=== PATIENT | female | born 1950 | race Caucasian/White ===

== ENCOUNTER → 2024-06-14 | Outpatient (CLI) | payer MEDICARE, MEDICAID, SELFPAY ==
[2024-06-14 16:34] LABS: Basophils # (Auto) 0.1 Thou/mm3 (0.0-0.2); Basophils % (Auto) 1 % (0-2.5); Eosinophils # (Auto) 0.2 Thou/mm3 (0.0-0.5); Eosinophils % (Auto) 2 % (0-10); Hematocrit 44.1 % (36.0-46.0); Hemoglobin 14.4 g/dL (12.0-16.0); Immature Granulocytes % (Auto) 1 % (0-0); Immature Granulocytes Auto 0.04 Thou/mm3 (0.00-0.00); Lymphocytes # (Auto) 1.6 Thou/mm3 (1.0-4.8); Lymphocytes % (Auto) 20 % (10-50); Mean Corpuscular HGB Conc 32.7 g/dl (31.0-37.0); Mean Corpuscular Hemoglobin 28.6 pg (25.0-35.0); Mean Corpuscular Volume 88 fL (80-100); Monocytes # (Auto) 0.6 Thou/mm3 (0.0-0.8); Monocytes % (Auto) 8 % (0-12); Neutrophils # (Auto) 5.4 Thou/mm3 (1.8-7.7); Neutrophils % (Auto) 69 % (37-80); Nucleated Red Blood Cell % 0 /100 WBC (0); Platelet Count 194 Thou/mm3 (140-440); RDW Standard Deviation 47.6 fL (36.4-46.3); Red Blood Count 5.04 Miln/mm3 (4.00-5.20); White Blood Count 7.8 Thou/mm3 (3.6-11.0)
[2024-06-14 16:51] LABS: Alanine Aminotransferase 38 U/L (10-49); Albumin, Serum 3.9 gm/dL (3.4-4.8); Albumin/Globulin Ratio 1.9 (1.2-2.2); Alkaline Phosphatase 167 U/L (46-116); Anion Gap 4 (7-16); Aspartate Amino Transferase 56 U/L (0-34); BUN/Creatinine Ratio 21 Ratio (12-20); Bilirubin,Total 0.5 mg/dL (0.3-1.2); Blood Urea Nitrogen 27 mg/dL (9-23); Calcium 10.2 mg/dL (8.3-10.6); Calcium (Corrected) 10.3 mg/dL (8.5-10.1); Chloride 103 mMol/L (98-107); Creatinine (Component) 1.3 mg/dL (0.6-1.3); Globulin 2.1 gm/dL (2.3-3.5); Glucose 100 mg/dL (74-106); Osmolality,Calculated 284 (275-295); Phosphorous 3.9 mg/dL (2.4-5.1); Potassium 4.2 mMol/L (3.4-5.1); Sodium 140 mMol/L (136-145); eGFR 44 See Note
[2024-06-14 17:18] LABS: INR 1.1 (0.9-1.3); Prothrombin Time 12.4 Seconds (9.0-12.2)
== END | disposition home or self-care (01) ==
LOC: COPL 15:39
PROVIDERS: PCP Internal Medicine; Referring Provider Internal Medicine; Visit Provider Internal Medicine
DX: N18.30 Chronic kidney disease, stage 3 unspecified (principal); K74.69 Other cirrhosis of liver; Z12.89 Encounter for screening for malignant neoplasm of other sites
CPT/HCPCS: 36415; 80053; 82105; 84100; 85025; 85610

== ENCOUNTER 2024-07-13 13:02 | Outpatient (RCR) | payer MEDICARE, MEDICAID, SELFPAY ==
[2024-07-12 15:42] LABS: Basophils # (Auto) 0.1 Thou/mm3 (0.0-0.2); Basophils % (Auto) 1 % (0-2.5); Eosinophils # (Auto) 0.2 Thou/mm3 (0.0-0.5); Eosinophils % (Auto) 3 % (0-10); Hematocrit 41.1 % (36.0-46.0); Hemoglobin 13.5 g/dL (12.0-16.0); Immature Granulocytes % (Auto) 0 % (0-0); Immature Granulocytes Auto 0.03 Thou/mm3 (0.00-0.00); Lymphocytes # (Auto) 1.7 Thou/mm3 (1.0-4.8); Lymphocytes % (Auto) 23 % (10-50); Mean Corpuscular HGB Conc 32.8 g/dl (31.0-37.0); Mean Corpuscular Hemoglobin 28.1 pg (25.0-35.0); Mean Corpuscular Volume 85 fL (80-100); Monocytes # (Auto) 0.6 Thou/mm3 (0.0-0.8); Monocytes % (Auto) 9 % (0-12); Neutrophils # (Auto) 4.5 Thou/mm3 (1.8-7.7); Neutrophils % (Auto) 64 % (37-80); Nucleated Red Blood Cell % 0 /100 WBC (0); Platelet Count 202 Thou/mm3 (140-440); RDW Standard Deviation 45.6 fL (36.4-46.3); Red Blood Count 4.81 Miln/mm3 (4.00-5.20); White Blood Count 7.1 Thou/mm3 (3.6-11.0)
[2024-07-12 15:57] LABS: Parathyroid Hormone Intact 94.6 pg/ml (18.5-88.0)
[2024-07-12 16:02] LABS: Alanine Aminotransferase 27 U/L (10-49); Albumin, Serum 3.8 gm/dL (3.4-4.8); Albumin/Globulin Ratio 1.6 (1.2-2.2); Alkaline Phosphatase 159 U/L (46-116); Anion Gap 9 (7-16); Aspartate Amino Transferase 51 U/L (0-34); BUN/Creatinine Ratio 15 Ratio (12-20); Bilirubin,Total 0.6 mg/dL (0.3-1.2); Blood Urea Nitrogen 23 mg/dL (9-23); Calcium 9.7 mg/dL (8.3-10.6); Calcium (Corrected) 9.9 mg/dL (8.5-10.1); Carbon Dioxide 28.1 mMol/L (20.0-31.0); Chloride 101 mMol/L (98-107); Creatinine (Component) 1.5 mg/dL (0.6-1.3); Globulin 2.4 gm/dL (2.3-3.5); Glucose 88 mg/dL (74-106); Osmolality,Calculated 278 (275-295); Potassium 3.4 mMol/L (3.4-5.1); Sodium 138 mMol/L (136-145); Total Protein 6.2 gm/dL (5.7-8.2); eGFR 37 See Note
== END 2024-08-09 23:59 | disposition home or self-care (01) ==
LOC: SCTC 13:02
PROVIDERS: Internal Medicine Hematology & Oncology; PCP Registered Nurse Community Health; Referring Provider Internal Medicine; Visit Provider Nurse Practitioner Family
DX: C50.411 Malignant neoplasm of upper-outer quadrant of right female breast (principal); Z17.0 Estrogen receptor positive status [ER+]; Z17.21 Progesterone receptor positive status; Z17.32 Human epidermal growth factor receptor 2 negative status; Z79.811 Long term (current) use of aromatase inhibitors; Z92.3 Personal history of irradiation; M85.88 Other specified disorders of bone density and structure, other site; R91.1 Solitary pulmonary nodule; Z87.891 Personal history of nicotine dependence; Z86.19 Personal history of other infectious and parasitic diseases
CPT/HCPCS: 36591; 80053; 82105; 83970; 85025; 99212; A4216; J1642; G0463

== ENCOUNTER → 2024-09-19 | Outpatient (CLI) | payer MEDICARE, MEDICAID, SELFPAY ==
--- NOTE | 2024-09-19 14:15 | XR_ITS ---
Examination: Screening digital mammography, bilateral Computer aided detection 3-D breast Tomosynthesis, bilateral Date and time of exam: September 19, 2024 1620 hours Compared to mammograms dating to June 22, 2019 Indication: Screening Technique: Nonmagnified MLO, CC views of the breasts to been obtained, reconstructed from 3-D Tomosynthesis images. R2 computer aided detection program utilized for evaluation of suspicious masses and/or abnormal calcifications. 3-D Tomosynthesis images obtained. Findings: Scattered areas of fibroglandular density. Numerous benign calcifications. No interval suspicious masses Impression: BI-RADS category II: Benign Findings. Recommend 1 year follow-up mammogram.
== END | disposition home or self-care (01) ==
LOC: CDIM 13:34
PROVIDERS: PCP Registered Nurse Community Health; Referring Provider Registered Nurse Community Health; Visit Provider Registered Nurse Community Health
DX: Z12.31 Encounter for screening mammogram for malignant neoplasm of breast (principal); R92.323 Mammographic fibroglandular density, bilateral breasts; R92.1 Mammographic calcification found on diagnostic imaging of breast; C50.919 Malignant neoplasm of unspecified site of unspecified female breast
CPT/HCPCS: 77063; 77067

== ENCOUNTER → 2024-10-04 | Outpatient (CLI) | payer MEDICARE, MEDICAID, SELFPAY ==
[2024-10-04 14:00] LABS: Basophils # (Auto) 0.1 Thou/mm3 (0.0-0.2); Basophils % (Auto) 1 % (0-2.5); Eosinophils # (Auto) 0.2 Thou/mm3 (0.0-0.5); Eosinophils % (Auto) 3 % (0-10); Hemoglobin 13.8 g/dL (12.0-16.0); Immature Granulocytes % (Auto) 0 % (0-0); Immature Granulocytes Auto 0.02 Thou/mm3 (0.00-0.00); Lymphocytes # (Auto) 1.7 Thou/mm3 (1.0-4.8); Lymphocytes % (Auto) 25 % (10-50); Mean Corpuscular HGB Conc 32.9 g/dl (31.0-37.0); Mean Corpuscular Hemoglobin 27.8 pg (25.0-35.0); Mean Corpuscular Volume 85 fL (80-100); Monocytes # (Auto) 0.6 Thou/mm3 (0.0-0.8); Monocytes % (Auto) 9 % (0-12); Neutrophils # (Auto) 4.2 Thou/mm3 (1.8-7.7); Neutrophils % (Auto) 62 % (37-80); Nucleated Red Blood Cell % 0 /100 WBC (0); Platelet Count 250 Thou/mm3 (140-440); RDW Standard Deviation 43.4 fL (36.4-46.3); Red Blood Count 4.96 Miln/mm3 (4.00-5.20); White Blood Count 6.8 Thou/mm3 (3.6-11.0)
[2024-10-04 14:01] LABS: INR 1.2 (0.9-1.3); Prothrombin Time 12.5 Seconds (9.0-12.2)
[2024-10-04 14:35] LABS: Alanine Aminotransferase 31 U/L (10-49); Albumin, Serum 3.9 gm/dL (3.4-4.8); Albumin/Globulin Ratio 1.6 (1.2-2.2); Anion Gap 8 (7-16); Aspartate Amino Transferase 43 U/L (0-34); BUN/Creatinine Ratio 26 Ratio (12-20); Bilirubin,Total 0.6 mg/dL (0.3-1.2); Blood Urea Nitrogen 31 mg/dL (9-23); Calcium 9.8 mg/dL (8.3-10.6); Calcium (Corrected) 9.9 mg/dL (8.5-10.1); Carbon Dioxide 29.1 mMol/L (20.0-31.0); Chloride 104 mMol/L (98-107); Creatinine (Component) 1.2 mg/dL (0.6-1.3); Globulin 2.5 gm/dL (2.3-3.5); Glucose 92 mg/dL (74-106); Osmolality,Calculated 287 (275-295); Potassium 4.4 mMol/L (3.4-5.1); Sodium 141 mMol/L (136-145); Total Protein 6.4 gm/dL (5.7-8.2); eGFR 48 See Note
[2024-10-04 14:55] LABS: Alkaline Phosphatase 171 U/L (46-116)
== END | disposition home or self-care (01) ==
PROVIDERS: PCP Registered Nurse Community Health; Referring Provider Internal Medicine; Visit Provider Internal Medicine
DX: K74.69 Other cirrhosis of liver (principal); K76.0 Fatty (change of) liver, not elsewhere classified
CPT/HCPCS: 36415; 80053; 85025; 85610

== ENCOUNTER → 2024-10-17 | Outpatient (CLI) | payer MEDICARE, MEDICAID, SELFPAY ==
--- NOTE | 2024-10-17 13:30 | XR_ITS ---
Examination: CT abdomen with intravenous contrast. Coronal 2-D reconstructions. Sagittal 2-D reconstructions. Date and time of exam:October 17, 2024 1414 hrs. Indications: Cirrhosis diagnosis 2016 generalized abdominal pain beginning 2 weeks ago CTDI: vol (mGy): 9.1 DLP: (mGycm): 285 Technique: Axial images of the abdomen have been obtained, 3 mm slice thickness, 60 cc [id number] 2-D sagittal coronal reconstructions Low dose protocols were performed. One or more of the following dose reduction techniques were used; automated exposure control, adjustment of the mA and/or KV according to patient size, use of iterative reconstruction technique. Findings: Minimal pericardial effusion Retrocardiac gastric hernia Liver irregular in contour no focal liver lesions Cholelithiasis Gallbladder wall does not appear thickened No splenic pancreatic or adrenal lesion Moderate bilateral renal parenchymal scar formation No ascites Abdominal aortic calcification No bowel obstruction Advanced degenerative disc disease L5-S1 Impression: Cirrhosis, no focal liver lesions Cholelithiasis
== END | disposition home or self-care (01) ==
PROVIDERS: PCP Registered Nurse Community Health; Referring Provider Internal Medicine; Visit Provider Internal Medicine
DX: K74.60 Unspecified cirrhosis of liver (principal); K80.20 Calculus of gallbladder without cholecystitis without obstruction
CPT/HCPCS: 74160; A4649; Q9967

== ENCOUNTER → 2024-10-20 | Outpatient (CLI) | payer MEDICARE, MEDICAID, SELFPAY ==
--- NOTE | 2024-10-20 13:00 | XR_ITS ---
Examination: CT chest, without intravenous contrast. Sagittal and coronal 2-D reconstructions. Exam date and time: October 20, 2024 1306 hrs. Comparison 05/03/2024 Indications: Right breast carcinoma diagnosis post lumpectomy, restaging, 4 mm pulmonary nodule right lower lobe on CT chest 05/03/2024 CTDI:vol (mGy) 10 DLP: (mGycm) 364 Technique: Multiple 3.0 mm axial sections of the chest to been obtained. Bone and lung density settings are obtained. Sagittal and coronal 2-D reconstructions have been obtained. Low dose protocols were performed. One or more of the following dose reduction techniques were used; automated exposure control, adjustment of the mA and/or KV according to patient size, use of iterative reconstruction technique. Findings: Thoracic aortic calcification no aneurysmal dilatation Pulmonary artery segments are not enlarged. Left mastectomy. No chest wall or axillary lymphadenopathy Moderate coronary artery calcification Trace pericardial thickening 4 mm pulmonary nodule right lower lobe No new pulmonary nodules Retrocardiac gastric hernia No visualized liver or splenic lesion Cholelithiasis Impression: Stable 4 mm pulmonary nodule right lower lobe, no new pulmonary nodules
== END | disposition home or self-care (01) ==
LOC: CCTX 12:37
PROVIDERS: PCP Registered Nurse Community Health; Referring Provider Nurse Practitioner Family; Visit Provider Nurse Practitioner Family
DX: R91.1 Solitary pulmonary nodule (principal); C50.411 Malignant neoplasm of upper-outer quadrant of right female breast
CPT/HCPCS: 71250

== ENCOUNTER 2024-11-01 14:31 | Outpatient (RCR) | payer MEDICARE, MEDICAID, SELFPAY ==
[2024-10-31 16:39] LABS: Basophils % (Auto) 1 % (0-2.5); Eosinophils # (Auto) 0.2 Thou/mm3 (0.0-0.5); Eosinophils % (Auto) 2 % (0-10); Hematocrit 42.5 % (36.0-46.0); Hemoglobin 14.1 g/dL (12.0-16.0); Immature Granulocytes % (Auto) 0 % (0-0); Immature Granulocytes Auto 0.02 Thou/mm3 (0.00-0.00); Lymphocytes # (Auto) 1.3 Thou/mm3 (1.0-4.8); Lymphocytes % (Auto) 17 % (10-50); Mean Corpuscular HGB Conc 33.2 g/dl (31.0-37.0); Mean Corpuscular Hemoglobin 28.3 pg (25.0-35.0); Mean Corpuscular Volume 85 fL (80-100); Monocytes # (Auto) 0.7 Thou/mm3 (0.0-0.8); Monocytes % (Auto) 9 % (0-12); Neutrophils # (Auto) 5.6 Thou/mm3 (1.8-7.7); Neutrophils % (Auto) 71 % (37-80); Nucleated Red Blood Cell % 0 /100 WBC (0); Platelet Count 186 Thou/mm3 (140-440); RDW Standard Deviation 43.8 fL (36.4-46.3); Red Blood Count 4.98 Miln/mm3 (4.00-5.20); White Blood Count 7.9 Thou/mm3 (3.6-11.0)
[2024-10-31 16:58] LABS: Alanine Aminotransferase 26 U/L (10-49); Albumin, Serum 3.7 gm/dL (3.4-4.8); Albumin/Globulin Ratio 1.4 (1.2-2.2); Alkaline Phosphatase 134 U/L (46-116); Anion Gap 7 (7-16); Aspartate Amino Transferase 47 U/L (0-34); BUN/Creatinine Ratio 23 Ratio (12-20); Bilirubin,Total 0.6 mg/dL (0.3-1.2); Blood Urea Nitrogen 30 mg/dL (9-23); Calcium 9.6 mg/dL (8.3-10.6); Calcium (Corrected) 9.8 mg/dL (8.5-10.1); Carbon Dioxide 29.4 mMol/L (20.0-31.0); Chloride 106 mMol/L (98-107); Creatinine (Component) 1.3 mg/dL (0.6-1.3); Globulin 2.7 gm/dL (2.3-3.5); Glucose 96 mg/dL (74-106); Osmolality,Calculated 289 (275-295); Potassium 4.3 mMol/L (3.4-5.1); Sodium 142 mMol/L (136-145); Total Protein 6.4 gm/dL (5.7-8.2); eGFR 44 See Note
--- NOTE | 2024-11-27 21:12 | CTCFLWUP_ITS ---
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 On adjuvant exemestane. Chronic renal insufficiency currently being followed by Dr. Loni Dumas History of hepatitis C (2002), treated with SOVALDI (2002), cirrhosis of the liver. History of gout. REASON FOR TODAY?S VISIT: This is office follow-up visit. Patient completed labs 07/12/2024. Patient is taking exemestane, tolerating it well, also taking citracal. Patient reports good energy and appetite. Using walker for ambulation. Denies any cough, chest pain, abdominal pain or leg cramps, weight loss. Malignant neoplasm of upper-outer quadrant of right female breast [ICD10] C50.411 DATE OF DIAGNOSIS: 10/26/2015 STAGE/TNM: IIA T2 N0 M0 TREATMENT HISTORY: Care?Plan Start?Date Cycle Day Intent DOCEtaxel?75,?CARBOplatin?AUC?6,?Trasutzumab?6?(8?Load) 02/14/2016 1 21 Curative?(adjuvant) Trastuzumab?6?mg/kg? To?Finish?the?Year 08/20/2016 1 21 Curative?(adjuvant) HISTORY OF PRESENT ILLNESS: Miranda Yoo is a 74-year-old female with following breast cancer history. 10/26/2015: Patient had a right breast mass stereotactic core biopsy which showed moderately differentiated ER MN positive HER-2/kassy overexpressed invasive ductal carcinoma. 11/08/2015: Patient patient had right breast partial mastectomy and sentinel lymph node biopsy. Pathology specimen showed single focus 2.2 cm invasive ductal carcinoma with mucinous-like features. No lymphovascular invasion was identified. It was staged as a pT2, N0 cM0. 10/23/2016: Patient also completed adjuvant radiation therapy to the right breast. 02/14/2016?05/30/2016: Patient completed 6 cycles of TCH chemotherapy. Completed 1 year of Herceptin (04/08/2017). 04/17/2017: Patient was started on adjuvant anastrozole. In June 2017 due to difficulty tolerating anastrozole it was changed to exemestane. 10/16/2017: DEXA scan?normal mineralization of the lumbar spine and osteopenia in the hips. 2018: Patient had EGD and colonoscopy done in [place]. I do not have the reports of this test. Patient does not remember the name of the doctor who did these procedures for her. According to Ms. Yoo these procedures came back negative. 02/07/2019: Abdominal ultrasound?hepatic parenchyma suggests an element of cirrhosis. 02/14/2020: Bone scan? 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 allopurinol - 100 mg 0.5 tab Daily 2. ALPRAZolam - 1 mg 1 tab Four times a day 3. amlodipine - 5 mg 1 tab Daily 4. calcitriol - 0.5 mcg 1 Capsule Every other day 5. Colace - 100 mg 1 Capsule Every other day 6. Cozaar - 7. DIALYVITE 800 - 1 tab Daily 8. Eliquis - 5 mg 1 tab Daily 9. Keppra - 500 mg 1 tab Twice a Day 10. levoFLOXacin - 750 mg 1 tab Every other day 11. magnesium oxide - 420 mg 1 tab Twice a Day 12. metoclopramide HCl - 5 mg 1 tab Twice a Day 13. metoprolol succinate - 50 mg 1 tab Daily 14. milk thistle - 140 mg 1 Capsule Daily 15. [place] - 10 mg Every 8 Hours 16. pantoprazole - 40 mg 1 tab Daily 17. pregabalin - 75 mg 1 Capsule Daily 18. simvastatin - 40 mg 1 tab Daily 19. tamoxifen - 20 mg 1 tab Daily 20. Xifaxan - 550 mg 1 tab Twice a Day Medications Last Reconciled by Lawanda Chowdhury MA on 11/01/2024 ALLERGIES: morphine REVIEW OF SYSTEMS: A complete 14-point review of systems was performed and is negative except as noted in interval history. PHYSICAL EXAMINATION: VITAL SIGNS: Temperature?98.1, B/P?129/79, Oxygen?Saturation?96% PAIN: 2 - Mild pain ECOG Performance Status: 0 - Asymptomatic and fully active GENERAL APPEARANCE: Appears well, in no apparent distress, appropriately interactive. HEENT: Normocephalic, no temporal wasting, normal conjunctiva, no scleral icterus, normal hearing, lips without lesions, neck normal range of motion. CARDIOVASCULAR: Not assessed. PULMONARY: Normal respiratory effort, no respiratory distress or use of accessory muscles, speaking in full sentences, no tachypnea. EXTREMITIES: No pedal edema or cyanosis. SKIN: Normal skin appearance. NEUROLOGIC: Alert and oriented x4. PSHYCHIATRIC: Appropriate affect, mood normal, behavior normal, intact thought and speech. LABORATORY DATA: I have personally reviewed and interpreted each of the patient?s relevant lab tests, abnormal findings are below: Date 10/04/24 3 ??WHITE?BLOOD?COUNT?(Thou/mm3) 6.8 7.9 ??RED?BLOOD?COUNT?(Miln/mm3) 4.96 4.98 ??HEMOGLOBIN?(gm/dl) 13.8 14.1 ??HEMATOCRIT?(%) 42.0 42.5 ??PLATELET?COUNT?(Thou/mm3) 250 186 ??NEUTROPHILS?%,?AUTO?(%) 62 71 ??LYMPH?%,?AUTO?(%) 25 17 ??NEUTROPHILS,?AUTO?(Thou/mm3) 4.2 5.6 ??GLUCOSE,RANDOM?(mg/dL) 92 96 ??BLOOD?UREA?NITROGEN?(mg/dL) 31?H 30?H ??CREATININE?(mg/dL) 1.20 1.30 ??SODIUM?(mmol/L) 141 142 ??POTASSIUM?(mmol/L) 4.4 4.3 ??CHLORIDE?(mmol/L) 104 106 ??CrCl?(CandG)?(ml/min) 46.82 43.94 ??AST/SGOT?(Unit/L) 43?H 47?H ??ALT/SGPT?(Unit/L) 31 26 ??ALKALINE?PHOSPHATASE?(Unit/L) 171?H 134?H ??BILIRUBIN,?TOTAL?(mg/dL) 0.6 0.6 ??PROTEIN?TOTAL?(gm/dl) 6.4 6.4 ??ALBUMIN,?SERUM?(gm/dl) 3.9 3.7 ??GLOBULIN?(gm/dl) 2.5 2.7 ??ALBUMIN/GLOBULIN?RATIO 1.6 1.4 ??CALCIUM,?SERUM?(mg/dL) 9.8 9.6 ??CALCIUM?SERUM?(CORRECTED)?(mg/dL) 9.9 9.8 ASSESSMENT/PLAN: #1. 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 Unable to tolerate anastrozole. Continue adjuvant exemestane (04/17/2017-) Mammogram screening done 09/15/2023 showed benign findings 1 year follow-up mammogram recommended. No clinical evidence of recurrence. Has exisiting order for Bilateral mammogram screening ordered for 09/2024. CBC CMP prior to next follow-up appointment. #2. Pulmonary nodule, 4 mm right lower lobe, [address] chest without contrast recommended, 05/03/2024. Former smoker quit about 4 years ago. No cough fever weight loss. Has existing 6-month follow up CT chest without contrast ordered for 10/2024. #3. Osteopenia. DEXA showed increased lumbar and hip mineralization, 05/22/2023 Continue with calcium and vitamin D. #4. History of hepatitis C infection in 2002 treated with SOVALDI. History of cirrhosis. Follows up with GI at [facility] and with Dr. Oliver GREENE prior to next follow-up appointment. ORDERS: Order # Description [id number] DXA L-Spine and Hip [id number] Comprehensive Metabolic Panel - 12 + CBC with Auto Diff + Follow Up 2 Months + CA 15-3 RETURN TO CLINIC: 3 months BILLING AND COMPLIANCE: I reviewed external records from providers outside my specialty as summarized above. I spent a total of 50 minutes on this patient?s care on the day of their visit excluding time spent related to any billed procedures. This time includes time spent with the patient as well as time spent documenting in the medical record, reviewing patients records and tests, obtaining history, placing orders, communicating with other healthcare professionals, counseling the patient, family or caregiver, and/or care coordination for the diagnoses above. Electronically Signed by: Jack Deleon MD T: 9:10 PM CC: Mike?[place]? PCP: No Primary/family, Physician Referring: Jack Deleon This document was completed utilizing speech recognition software. Grammatical errors, random word insertions, pronoun errors, and incomplete sentences are an occasional consequence of this system due to software limitations, ambient noise, and hardware issues. Any formal questions or concerns about the content, text or information contained within the body of this dictation should be directly addressed to the provider for clarification.
== END 2024-11-07 23:59 | disposition home or self-care (01) ==
LOC: SCTC 14:31
PROVIDERS: Referring Provider Internal Medicine Hematology & Oncology; Visit Provider Internal Medicine Hematology & Oncology
DX: C50.411 Malignant neoplasm of upper-outer quadrant of right female breast (principal); Z17.0 Estrogen receptor positive status [ER+]; Z17.21 Progesterone receptor positive status; Z17.32 Human epidermal growth factor receptor 2 negative status; Z90.11 Acquired absence of right breast and nipple; Z92.3 Personal history of irradiation; Z92.21 Personal history of antineoplastic chemotherapy; Z79.811 Long term (current) use of aromatase inhibitors; R91.1 Solitary pulmonary nodule; Z87.891 Personal history of nicotine dependence; M85.80 Other specified disorders of bone density and structure, unspecified site; Z86.19 Personal history of other infectious and parasitic diseases
CPT/HCPCS: 36591; 80053; 82105; 85025; 99212; A4216; J1642; G0463

== ENCOUNTER → 2024-12-06 | Outpatient (CLI) | payer MEDICARE, MEDICAID, SELFPAY ==
--- NOTE | 2024-12-06 | XR_ITS ---
Examination: Toes, left foot 3 views Technique: Toes AP oblique lateral 3 views Date and time of exam: December 06, 2024 1206 hours INDICATIONS: Injury to the foot one week ago with persistent oh pain. FINDINGS: Acute fracture distal aspect proximal phalanx fifth digit intra-articular No significant displacement No dislocation IMPRESSION: Acute fracture proximal phalanx fifth digit
--- NOTE | 2024-12-06 | XR_ITS ---
Examination: Foot, left, 3 views Technique: AP, oblique, lateral views foot, 3 views Date and time of exam: December 06, 2024 at 1206 hours INDICATIONS: Injury to the foot one week ago, with foot pain FINDINGS: Prominent osteopenia Acute fracture distal aspect proximal phalanx fifth digit, intra-articular, without significant displacement Plantar bony calcaneal spur IMPRESSION: Acute fracture distal aspect proximal phalanx fifth digit
== END | disposition home or self-care (01) ==
PROVIDERS: PCP Registered Nurse Community Health; Referring Provider Registered Nurse Community Health; Visit Provider Registered Nurse Community Health
DX: S92.512A Displaced fracture of proximal phalanx of left lesser toe(s), initial encounter for closed fracture (principal); X58.XXXA Exposure to other specified factors, initial encounter
CPT/HCPCS: 73630; 73660

== ENCOUNTER → 2024-12-07 | Outpatient (CLI) | payer MEDICARE, MEDICAID, SELFPAY ==
--- NOTE | 2024-12-07 13:00 | XR_ITS ---
Examination: Abdomen sonogram, complete Date and time of exam: December 07, 2024 1151 hours INDICATIONS: Diagnosis cirrhosis 6 months ago, cholelithiasis, anterior gallbladder wall mass 10 mm on ultrasound abdomen May 28, 2024. Technique: Multiple real-time grayscale transabdominal sonographic images of the abdomen have been obtained. Findings: Cholelithiasis Anterior gallbladder wall mass 10 x 7 x 11 mm No pericholecystic edema Common bile duct enlarged 10 mm Pancreatic head 2.5 cm Aorta not enlarged Liver 15.8 cm fatty infiltration irregular contour no focal liver lesions Normal hepatopedal portal venous flow Patent IVC Right kidney 10.1 cm renal cortex 1.1 cm The kidney 8.1 cm renal cortex 1.2 cm Mild renal parenchymal scar formation Spleen 11.5 cm IMPRESSION: 10 x 7 x 11 mm solid mass anterior gallbladder wall Cholelithiasis Negative for cholecystitis Portal vein measures 10 mm Cirrhosis, no focal liver lesions
[2024-12-07 13:15] LABS: Basophils # (Auto) 0.1 Thou/mm3 (0.0-0.2); Basophils % (Auto) 1 % (0-2.5); Eosinophils # (Auto) 0.2 Thou/mm3 (0.0-0.5); Eosinophils % (Auto) 2 % (0-10); Hematocrit 42.5 % (36.0-46.0); Hemoglobin 13.9 g/dL (12.0-16.0); Immature Granulocytes % (Auto) 0 % (0-0); Immature Granulocytes Auto 0.03 Thou/mm3 (0.00-0.00); Lymphocytes # (Auto) 1.5 Thou/mm3 (1.0-4.8); Lymphocytes % (Auto) 20 % (10-50); Mean Corpuscular HGB Conc 32.7 g/dl (31.0-37.0); Mean Corpuscular Hemoglobin 28.4 pg (25.0-35.0); Mean Corpuscular Volume 87 fL (80-100); Monocytes # (Auto) 0.7 Thou/mm3 (0.0-0.8); Monocytes % (Auto) 9 % (0-12); Neutrophils # (Auto) 5.1 Thou/mm3 (1.8-7.7); Neutrophils % (Auto) 67 % (37-80); Nucleated Red Blood Cell % 0 /100 WBC (0); Platelet Count 221 Thou/mm3 (140-440); RDW Standard Deviation 46.4 fL (36.4-46.3); White Blood Count 7.6 Thou/mm3 (3.6-11.0)
[2024-12-07 13:18] LABS: INR 1.2 (0.9-1.3); Prothrombin Time 13.3 Seconds (9.0-12.2)
[2024-12-07 13:41] LABS: Alanine Aminotransferase 27 U/L (10-49); Albumin, Serum 3.6 gm/dL (3.4-4.8); Albumin/Globulin Ratio 1.3 (1.2-2.2); Alkaline Phosphatase 171 U/L (46-116); Anion Gap 6 (7-16); Aspartate Amino Transferase 43 U/L (0-34); BUN/Creatinine Ratio 26 Ratio (12-20); Bilirubin,Total 0.9 mg/dL (0.3-1.2); Blood Urea Nitrogen 34 mg/dL (9-23); Calcium 9.3 mg/dL (8.3-10.6); Calcium (Corrected) 9.6 mg/dL (8.5-10.1); Carbon Dioxide 29.7 mMol/L (20.0-31.0); Chloride 108 mMol/L (98-107); Creatinine (Component) 1.3 mg/dL (0.6-1.3); Globulin 2.7 gm/dL (2.3-3.5); Glucose 91 mg/dL (74-106); Osmolality,Calculated 294 (275-295); Sodium 144 mMol/L (136-145); Total Protein 6.3 gm/dL (5.7-8.2); eGFR 44 See Note
== END | disposition home or self-care (01) ==
LOC: CDIM 11:15 → COPL 12:20
PROVIDERS: Referring Provider Internal Medicine; Visit Provider Radiology Diagnostic Radiology
DX: K80.20 Calculus of gallbladder without cholecystitis without obstruction (principal); K74.69 Other cirrhosis of liver; Z12.89 Encounter for screening for malignant neoplasm of other sites
CPT/HCPCS: 36415; 76700; 80053; 82105; 85025; 85610

== ENCOUNTER → 2024-12-23 | Outpatient (CLI) | payer MEDICARE, MEDICAID, SELFPAY ==
[2024-12-23 14:52] LABS: Collection Type, Urine Clean Catch; RBC,Urine 0 /hpf (0-3)
[2024-12-23 15:15] LABS: Basophils # (Auto) 0.1 Thou/mm3 (0.0-0.2); Basophils % (Auto) 1 % (0-2.5); Eosinophils # (Auto) 0.2 Thou/mm3 (0.0-0.5); Eosinophils % (Auto) 3 % (0-10); Hematocrit 41.2 % (36.0-46.0); Hemoglobin 13.4 g/dL (12.0-16.0); Immature Granulocytes % (Auto) 0 % (0-0); Immature Granulocytes Auto 0.02 Thou/mm3 (0.00-0.00); Lymphocytes # (Auto) 1.7 Thou/mm3 (1.0-4.8); Lymphocytes % (Auto) 24 % (10-50); Mean Corpuscular HGB Conc 32.5 g/dl (31.0-37.0); Mean Corpuscular Hemoglobin 28.5 pg (25.0-35.0); Mean Corpuscular Volume 88 fL (80-100); Monocytes # (Auto) 0.6 Thou/mm3 (0.0-0.8); Monocytes % (Auto) 9 % (0-12); Neutrophils # (Auto) 4.7 Thou/mm3 (1.8-7.7); Neutrophils % (Auto) 64 % (37-80); Nucleated Red Blood Cell % 0 /100 WBC (0); Platelet Count 239 Thou/mm3 (140-440); RDW Standard Deviation 47.6 fL (36.4-46.3); Red Blood Count 4.71 Miln/mm3 (4.00-5.20); White Blood Count 7.4 Thou/mm3 (3.6-11.0)
[2024-12-23 15:39] LABS: Creatinine MALB Rnd Ur 73 mg/dL (30-125); Microalbumin, Random Urine < 3 mg/L (0-300)
[2024-12-23 15:41] LABS: Parathyroid Hormone Intact 119.8 pg/ml (18.5-88.0)
[2024-12-23 15:42] LABS: Albumin, Serum 3.7 gm/dL (3.4-4.8); Anion Gap 7 (7-16); BUN/Creatinine Ratio 19 Ratio (12-20); Blood Urea Nitrogen 27 mg/dL (9-23); Calcium 9.1 mg/dL (8.3-10.6); Calcium (Corrected) 9.3 mg/dL (8.5-10.1); Chloride 105 mMol/L (98-107); Creatinine (Component) 1.4 mg/dL (0.6-1.3); Glucose 98 mg/dL (74-106); Osmolality,Calculated 288 (275-295); Phosphorous 3.8 mg/dL (2.4-5.1); Potassium 5.2 mMol/L (3.4-5.1); Sodium 142 mMol/L (136-145); eGFR 40 See Note
[2024-12-23 15:46] LABS: Bilirubin,Urine Negative (Negative); Blood,Urine Negative (Negative); Clarity,Urine Clear (Clear/Hazy); Color,Urine Lt-Yellow (Lt Yel-Yel); Glucose, Urine Negative (Negative); Ketones,Urine Negative (Negative); Leukocyte Esterase,Urine Negative (Negative); Nitrite,Urine Negative (Negative); PH,Urine 6.5 (5.0-7.0); Protein,Urine Negative (Neg - Trace); Specific Gravity,Urine 1.015 (1.001-1.035); Urobilinogen,Urine Negative mg/dL (0.0-1.0)
[2024-12-23 17:04] LABS: Bacteria,Urine Rare; Squamous Epithelial Cell,Urine 6 /hpf (0-5); WBC,Urine 2 /hpf (0-5)
== END | disposition home or self-care (01) ==
LOC: COPL 14:15
PROVIDERS: PCP Registered Nurse Community Health; Referring Provider Internal Medicine; Visit Provider Internal Medicine
DX: I12.9 Hypertensive chronic kidney disease with stage 1 through stage 4 chronic kidney disease, or unspecified chronic kidney disease (principal); N18.30 Chronic kidney disease, stage 3 unspecified; E78.5 Hyperlipidemia, unspecified
CPT/HCPCS: 36415; 80069; 81001; 82043; 82570; 83970; 85025

== ENCOUNTER 2025-01-05 14:25 | Outpatient (RCR) | payer MEDICARE, MEDICAID, SELFPAY ==
[2025-01-04 15:08] LABS: Basophils # (Auto) 0.1 Thou/mm3 (0.0-0.2); Basophils % (Auto) 1 % (0-2.5); Eosinophils # (Auto) 0.2 Thou/mm3 (0.0-0.5); Eosinophils % (Auto) 2 % (0-10); Hematocrit 42.4 % (36.0-46.0); Hemoglobin 14.3 g/dL (12.0-16.0); Immature Granulocytes % (Auto) 0 % (0-0); Immature Granulocytes Auto 0.03 Thou/mm3 (0.00-0.00); Lymphocytes # (Auto) 1.9 Thou/mm3 (1.0-4.8); Lymphocytes % (Auto) 22 % (10-50); Mean Corpuscular HGB Conc 33.7 g/dl (31.0-37.0); Mean Corpuscular Hemoglobin 28.6 pg (25.0-35.0); Mean Corpuscular Volume 85 fL (80-100); Monocytes # (Auto) 0.7 Thou/mm3 (0.0-0.8); Monocytes % (Auto) 7 % (0-12); Neutrophils % (Auto) 68 % (37-80); Nucleated Red Blood Cell % 0 /100 WBC (0); Platelet Count 230 Thou/mm3 (140-440); RDW Standard Deviation 45.6 fL (36.4-46.3); White Blood Count 8.9 Thou/mm3 (3.6-11.0)
[2025-01-04 15:24] LABS: Alanine Aminotransferase 24 U/L (10-49); Albumin, Serum 3.8 gm/dL (3.4-4.8); Albumin/Globulin Ratio 1.5 (1.2-2.2); Alkaline Phosphatase 149 U/L (46-116); Anion Gap 9 (7-16); Aspartate Amino Transferase 39 U/L (0-34); BUN/Creatinine Ratio 19 Ratio (12-20); Bilirubin,Total 0.5 mg/dL (0.3-1.2); Blood Urea Nitrogen 28 mg/dL (9-23); Calcium (Corrected) 9.2 mg/dL (8.5-10.1); Carbon Dioxide 25.1 mMol/L (20.0-31.0); Chloride 107 mMol/L (98-107); Creatinine (Component) 1.5 mg/dL (0.6-1.3); Globulin 2.5 gm/dL (2.3-3.5); Glucose 95 mg/dL (74-106); Osmolality,Calculated 286 (275-295); Potassium 4.2 mMol/L (3.4-5.1); Sodium 141 mMol/L (136-145); Total Protein 6.3 gm/dL (5.7-8.2); eGFR 37 See Note
[2025-01-04 15:43] LABS: CA 15-3 18.4 U/mL (<32.4)
--- NOTE | 2025-01-08 23:47 | CTCFLWUP_ITS ---
Patient: IMANI YOO : 1950 Page 4 of 7 FOLLOW UP NOTE DATE OF SERVICE: 01/05/2025 NAME: IMANI YOO ACCOUNT: [id number] : 1950 AGE: 74 INTERVAL HISTORY: Subjective: Chief Complaint Follow-up for stage-2 ER-positive breast cancer, medication review, concern about blood clots History of Present Illness Leonardo is a patient with stage-2 ER-positive breast cancer, HER2 overexpression, and right breast resection, presenting for follow-up. She was started on adjuvant exemestane in 2016 after being unable to tolerate anastrozole. The patient reports no significant issues with her current medication regimen. She was switched from exemestane to tamoxifen on November 23, 2024, and states she has experienced no problems with it at all. However, she expresses concern about the risk of blood clots associated with tamoxifen and indicates a desire to change her medication. The patient mentions that she has been experiencing seizures, which has impacted her ability to drive, requiring her to get rides. She reports being active at home, stating she walks to the mailbox and does similar activities. Regarding medication management, the patient admits to having a lot of medications to keep up with and relies on her granddaughter to organize her pills. She is uncertain about her current vitamin D supplementation and mentions that following a seizure episode, many of her medications were discontinued due to concerns about overmedication. Medications and Supplements - Exemestane - Started in 2016 as adjuvant therapy - Taking every 3 months - Tamoxifen - Prescribed on November 23, 2024 - 90 tablets - Calcium - Anastrozole - Discontinued due to intolerance Review of Systems Neurological: Positive for seizures. Musculoskeletal: Negative for limited mobility, as patient reports being able to walk to the mailbox. Objective: Laboratory, Imaging, and Diagnostic Test Results - Mammogram (September 2024): Benign findings - CT scan (October 22, 2024): - Stable 4-millimeter pulmonary nodule in the right lower lobe - No new pulmonary nodules - Bone density scan: - Osteopenia noted - Lumbar spine density increased ONCOLOGY HISTORY: DIAGNOSIS: Stage IIa ER positive, WV positive HER-2/kassy overexpressed invasive ductal carcinoma of the right breast (11/08/2015). On adjuvant exemestane. Chronic renal insufficiency currently being followed by Dr. Loni Dumas History of hepatitis C (2003), treated with SOVALDI (2003), cirrhosis of the liver. History of gout. REASON FOR TODAY?S VISIT: This is office follow-up visit. Patient completed labs 07/12/2024. Patient is taking exemestane, tolerating it well, also taking citracal. Patient reports good energy and appetite. Using walker for ambulation. Denies any cough, chest pain, abdominal pain or leg cramps, weight loss. Malignant neoplasm of upper-outer quadrant of right female breast [ICD10] C50.411 DATE OF DIAGNOSIS: 10/26/2015 STAGE/TNM: IIA T2 N0 M0 TREATMENT HISTORY: Care?Plan Start?Date Cycle Day Intent DOCEtaxel?75,?CARBOplatin?AUC?6,?Trasutzumab?6?(8?Load) 02/14/2016 1 21 Curative?(adjuvant) Trastuzumab?6?mg/kg? To?Finish?the?Year 08/20/201608 30 Curative?(adjuvant) HISTORY OF PRESENT ILLNESS: Miranda Yoo is a 74-year-old female with following breast cancer history. 10/26/2015: Patient had a right breast mass stereotactic core biopsy which showed moderately differentiated ER WV positive HER-2/kassy overexpressed invasive ductal carcinoma. 11/08/2015: Patient patient had right breast partial mastectomy and sentinel lymph node biopsy. Pathology specimen showed single focus 2.2 cm invasive ductal carcinoma with mucinous-like features. No lymphovascular invasion was identified. It was staged as a pT2, N0 cM0. 10/23/2016: Patient also completed adjuvant radiation therapy to the right breast. 02/14/2016?05/30/2016: Patient completed 6 cycles of TCH chemotherapy. Completed 1 year of Herceptin (04/08/2017). 04/17/2017: Patient was started on adjuvant anastrozole. In June 2017 due to difficulty tolerating anastrozole it was changed to exemestane. 10/16/2017: DEXA scan?normal mineralization of the lumbar spine and osteopenia in the hips. 2018: Patient had EGD and colonoscopy done in [place]. I do not have the reports of this test. Patient does not remember the name of the doctor who did these procedures for her. According to Ms. Yoo these procedures came back negative. 02/07/2019: Abdominal ultrasound?hepatic parenchyma suggests an element of cirrhosis. 02/14/2020: Bone scan? OTHER MEDICAL HISTORY/CONDITIONS: FAMILY HISTORY: SOCIAL HISTORY: DIRECTOR OF FIRST IMPRESSIONS HISTORY: MEDICATIONS: 1. allopurinol - 100 mg 0.5 tab Daily 2. ALPRAZolam - 1 mg 1 tab Four times a day 3. amlodipine - 5 mg 1 tab Daily 4. calcitriol - 0.5 mcg 1 Capsule Every other day 5. Calcium 600 + D(3) - 600 mg-10 mcg (400 unit) 1 tab 1 tab twice daily 6. Colace - 100 mg 1 Capsule Every other day 7. Cozaar - 8. DIALYVITE 800 - 1 tab Daily 9. Eliquis - 5 mg 1 tab Daily 10. exemestane - 25 mg 1 tab Daily 11. Keppra - 500 mg 1 tab Twice a Day 12. levoFLOXacin - 750 mg 1 tab Every other day 13. magnesium oxide - 420 mg 1 tab Twice a Day 14. metoclopramide HCl - 5 mg 1 tab Twice a Day 15. metoprolol succinate - 50 mg 1 tab Daily 16. milk thistle - 140 mg 1 Capsule Daily 17. [place] - 10 mg Every 8 Hours 18. pantoprazole - 40 mg 1 tab Daily 19. pregabalin - 75 mg 1 Capsule Daily 20. simvastatin - 40 mg 1 tab Daily 21. tamoxifen - 20 mg 1 tab Daily 22. Xifaxan - 550 mg 1 tab Twice a Day Medications Last Reconciled by Annmarie Floyd MA on 01/05/2025 ALLERGIES: morphine REVIEW OF SYSTEMS: A complete 14-point review of systems was performed and is negative except as noted in interval history. PHYSICAL EXAMINATION: VITAL SIGNS: Temperature?97, B/P?110/75, Oxygen?Saturation?96% Weight?198?lbs (Change?since?01/04/25:?-1.2?lbs) PAIN: 8 - Very severe pain ECOG Performance Status: None GENERAL APPEARANCE: Appears well, in no apparent distress, appropriately interactive. HEENT: Normocephalic, no temporal wasting, normal conjunctiva, no scleral icterus, normal hearing, lips without lesions, neck normal range of motion. CARDIOVASCULAR: Not assessed. PULMONARY: Normal respiratory effort, no respiratory distress or use of accessory muscles, speaking in full sentences, no tachypnea. EXTREMITIES: No pedal edema or cyanosis. SKIN: Normal skin appearance. NEUROLOGIC: Alert and oriented x4. PSHYCHIATRIC: Appropriate affect, mood normal, behavior normal, intact thought and speech. LABORATORY DATA: I have personally reviewed and interpreted each of the patient?s relevant lab tests, abnormal findings are below: Date 12/23/24 01/04/25 ??WHITE?BLOOD?COUNT?(Thou/mm3) 7.4 8.9 ??RED?BLOOD?COUNT?(Miln/mm3) 4.71 5.00 ??HEMOGLOBIN?(gm/dl) 13.4 14.3 ??HEMATOCRIT?(%) 41.2 42.4 ??PLATELET?COUNT?(Thou/mm3) 239 230 ??NEUTROPHILS?%,?AUTO?(%) 64 68 ??LYMPH?%,?AUTO?(%) 24 22 ??NEUTROPHILS,?AUTO?(Thou/mm3) 4.7 6.0 ??GLUCOSE,RANDOM?(mg/dL) 98 95 ??BLOOD?UREA?NITROGEN?(mg/dL) 27?H 28?H ??CREATININE?(mg/dL) 1.40?H 1.50?H ??SODIUM?(mmol/L) 142 141 ??POTASSIUM?(mmol/L) 5.2?H 4.2 ??CHLORIDE?(mmol/L) 105 107 ??CrCl?(CandG)?(ml/min) 40.80 38.35 ??AST/SGOT?(Unit/L) ? 39?H ??ALT/SGPT?(Unit/L) ? 24 ??ALKALINE?PHOSPHATASE?(Unit/L) ? 149?H ??BILIRUBIN,?TOTAL?(mg/dL) ? 0.5 ??PROTEIN?TOTAL?(gm/dl) ? 6.3 ??ALBUMIN,?SERUM?(gm/dl) 3.7 3.8 ??GLOBULIN?(gm/dl) ? 2.5 ??ALBUMIN/GLOBULIN?RATIO ? 1.5 ??CALCIUM,?SERUM?(mg/dL) 9.1 9.0 ??CALCIUM?SERUM?(CORRECTED)?(mg/dL) 9.3 9.2 ASSESSMENT/PLAN: #1. Stage IIa ER positive, WV positive HER-2/kassy overexpressed invasive ductal carcinoma of the right breast (11/08/2015). Unable to tolerate anastrozole. Continue adjuvant exemestane (04/17/2017-) Mammogram screening done 09/15/2023 showed benign findings 1 year follow-up mammogram recommended. No clinical evidence of recurrence. Has exisiting order for Bilateral mammogram screening ordered for 09/2024. CBC CMP prior to next follow-up appointment. #2. Pulmonary nodule, 4 mm right lower lobe, [address] chest without contrast recommended, 05/03/2024. Former smoker quit about 4 years ago. No cough fever weight loss. Has existing 6-month follow up CT chest without contrast ordered for 10/2024. #3. Osteopenia. DEXA showed increased lumbar and hip mineralization, 05/22/2023 Continue with calcium and vitamin D. #4. History of hepatitis C infection in 2002 treated with SOVALDI. History of cirrhosis. Follows up with GI at [facility] and with Dr. Oliver GREENE prior to next follow-up appointment. Assessment and Plan: Leonardo, a stage-2 ER-positive breast cancer patient with HER2 overexpression, status post right breast resection, currently on adjuvant exemestane, presenting for follow-up and medication management. Breast Cancer, Stage 2, ER-positive, HER2-positive Assessment: Patient with history of stage 2 ER-positive, HER2-positive breast cancer, status post right breast resection. Initially started on anastrozole, which was not tolerated, then switched to adjuvant exemestane in 2016. Recent mammogram in September showed benign findings. CT scan on October 22, 2024, revealed a stable 4-millimeter pulmonary nodule in the right lower lobe with no new pulmonary nodules. Patient was switched from exemestane to tamoxifen on November 23, 2024, due to concerns about side effects. Patient reports no problems with the new medication but expresses worry about potential blood clots. Plan: - Discontinue tamoxifen due to patient concerns about blood clots - Initiate anastrazole - Schedule follow-up mammogram in September 2025 - Educate patient on the importance of maintaining physical activity to reduce blood clot risk - Follow up on medication tolerance and efficacy at next visit Osteopenia Assessment: Patient has a known history of osteopenia. Recent bone density scan shows increased lumbar spine density, indicating possible improvement in bone health. Plan: - Continue calcium supplementation - Initiate vitamin D supplementation - Order bone density scan (timing not specified) Medication Management Assessment: Patient reports difficulty managing multiple medications. Granddaughter assists with medication organization. Patient experienced seizures in the past, which led to discontinuation of several medications due to concerns about overmedication. Plan: - Provide prescription for calcium and vitamin D supplements - Educate patient on the importance of vitamin D supplementation for women's health - Encourage patient to maintain communication with healthcare providers regarding medication changes and side effects ORDERS: Order # Description [id number] MD Follow Up 1 Year [id number] Comprehensive Metabolic Panel - 12 + CBC with Auto Diff [id number] 3D Mammogram Screening + Bilateral [id number] CA 15-3 [id number] DXA L-Spine and Hip [id number] RETURN TO CLINIC: BILLING AND COMPLIANCE: I reviewed external records from providers outside my specialty as summarized above. I spent a total of 50 minutes on this patient?s care on the day of their visit excluding time spent related to any billed procedures. This time includes time spent with the patient as well as time spent documenting in the medical record, reviewing patients records and tests, obtaining history, placing orders, communicating with other healthcare professionals, counseling the patient, family or caregiver, and/or care coordination for the diagnoses above. Electronically Signed by: {Object.Sanct_ID*PnP.NameFL@M}, {Object.Sanct_ID*PnP.Suffix@U} D: {Object.Sanct_Date} T: {Object.Sanct_Time} CC: Mike?[place],? PCP: Amira Chowdhury Referring: Amira Chowdhury This document was completed utilizing speech recognition software. Grammatical errors, random word insertions, pronoun errors, and incomplete sentences are an occasional consequence of this system due to software limitations, ambient noise, and hardware issues. Any formal questions or concerns about the content, text or information contained within the body of this dictation should be directly addressed to the provider for clarification.
== END 2025-01-07 23:59 | disposition home or self-care (01) ==
LOC: SCTC 14:25
PROVIDERS: PCP Registered Nurse Community Health; Referring Provider Registered Nurse Community Health; Visit Provider Internal Medicine Hematology & Oncology
DX: C50.411 Malignant neoplasm of upper-outer quadrant of right female breast (principal); Z17.0 Estrogen receptor positive status [ER+]; Z17.21 Progesterone receptor positive status; Z17.32 Human epidermal growth factor receptor 2 negative status; Z79.811 Long term (current) use of aromatase inhibitors; R91.1 Solitary pulmonary nodule; M85.89 Other specified disorders of bone density and structure, multiple sites; Z86.19 Personal history of other infectious and parasitic diseases
CPT/HCPCS: 36591; 80053; 85025; 86300; 99212; A4216; J1642; G0463

== ENCOUNTER → 2025-01-23 | Outpatient (CLI) | payer MEDICARE, MEDICAID, SELFPAY ==
[2025-01-23 15:12] LABS: Collection Type, Urine Clean Catch
[2025-01-23 15:46] LABS: Basophils # (Auto) 0.1 Thou/mm3 (0.0-0.2); Basophils % (Auto) 1 % (0-2.5); Eosinophils # (Auto) 0.2 Thou/mm3 (0.0-0.5); Eosinophils % (Auto) 2 % (0-10); Hematocrit 39.8 % (36.0-46.0); Hemoglobin 13.2 g/dL (12.0-16.0); Immature Granulocytes % (Auto) 0 % (0-0); Immature Granulocytes Auto 0.01 Thou/mm3 (0.00-0.00); Lymphocytes # (Auto) 1.7 Thou/mm3 (1.0-4.8); Lymphocytes % (Auto) 21 % (10-50); Mean Corpuscular HGB Conc 33.2 g/dl (31.0-37.0); Mean Corpuscular Hemoglobin 28.5 pg (25.0-35.0); Mean Corpuscular Volume 86 fL (80-100); Monocytes # (Auto) 0.7 Thou/mm3 (0.0-0.8); Monocytes % (Auto) 8 % (0-12); Neutrophils # (Auto) 5.8 Thou/mm3 (1.8-7.7); Neutrophils % (Auto) 69 % (37-80); Nucleated Red Blood Cell % 0 /100 WBC (0); Platelet Count 199 Thou/mm3 (140-440); RDW Standard Deviation 47.9 fL (36.4-46.3); Red Blood Count 4.63 Miln/mm3 (4.00-5.20); White Blood Count 8.4 Thou/mm3 (3.6-11.0)
[2025-01-23 16:05] LABS: Parathyroid Hormone Intact 144.2 pg/ml (18.5-88.0)
[2025-01-23 16:09] LABS: Albumin, Serum 3.7 gm/dL (3.4-4.8); Anion Gap 8 (7-16); BUN/Creatinine Ratio 20 Ratio (12-20); Blood Urea Nitrogen 28 mg/dL (9-23); Calcium 9.1 mg/dL (8.3-10.6); Calcium (Corrected) 9.3 mg/dL (8.5-10.1); Carbon Dioxide 30.7 mMol/L (20.0-31.0); Chloride 107 mMol/L (98-107); Creatinine (Component) 1.4 mg/dL (0.6-1.3); Glucose 84 mg/dL (74-106); Osmolality,Calculated 295 (275-295); Phosphorous 3.1 mg/dL (2.4-5.1); Potassium 4.5 mMol/L (3.4-5.1); Sodium 146 mMol/L (136-145); eGFR 40 See Note
[2025-01-23 18:03] LABS: Creatinine MALB Rnd Ur 113 mg/dL (30-125); Microalbumin, Random Urine < 3 mg/L (0-300)
[2025-01-23 18:57] LABS: Bacteria,Urine 1+; Bilirubin,Urine Negative (Negative); Blood,Urine Trace (Negative); Clarity,Urine Turbid (Clear/Hazy); Color,Urine Yellow (Lt Yel-Yel); Glucose, Urine Negative (Negative); Ketones,Urine Negative (Negative); Leukocyte Esterase,Urine Positive (Negative); Nitrite,Urine Negative (Negative); PH,Urine 5.5 (5.0-7.0); Protein,Urine Negative (Neg - Trace); RBC,Urine 11 /hpf (0-3); Specific Gravity,Urine 1.021 (1.001-1.035); Squamous Epithelial Cell,Urine 20 /hpf (0-5); Urobilinogen,Urine Negative mg/dL (0.0-1.0); WBC,Urine 2 /hpf (0-5)
== END | disposition home or self-care (01) ==
LOC: COPL 14:45
PROVIDERS: PCP Registered Nurse Community Health; Referring Provider Internal Medicine; Visit Provider Internal Medicine
DX: I12.9 Hypertensive chronic kidney disease with stage 1 through stage 4 chronic kidney disease, or unspecified chronic kidney disease (principal); N18.30 Chronic kidney disease, stage 3 unspecified; E78.5 Hyperlipidemia, unspecified
CPT/HCPCS: 36415; 80069; 81001; 82043; 82570; 83970; 85025

== ENCOUNTER → 2025-01-25 | Outpatient (CLI) | payer MEDICARE, MEDICAID, SELFPAY ==
--- NOTE | 2025-01-25 14:49 | XR_ITS ---
Examination: Knee, right , 3 views Technique: Knee AP, lateral, oblique 3 views Date and time of exam: January 25, 2025 1503 hours INDICATIONS: Patient fell days ago with injury to knee, knee pain. FINDINGS: Total right knee arthroplasty. No fracture No loosening of the prosthetic components IMPRESSION: Total right knee arthroplasty with satisfactory alignment
== END | disposition home or self-care (01) ==
PROVIDERS: PCP Registered Nurse Community Health; Referring Provider Registered Nurse Community Health; Visit Provider Registered Nurse Community Health
DX: S89.91XA Unspecified injury of right lower leg, initial encounter (principal); W19.XXXA Unspecified fall, initial encounter; Z96.651 Presence of right artificial knee joint
CPT/HCPCS: 73562

== ENCOUNTER → 2025-03-22 | Outpatient (CLI) | payer MEDICARE, MEDICAID, SELFPAY ==
[2025-03-22 14:25] LABS: Misc Send Out* See Sep Rpt
== END | disposition home or self-care (01) ==
LOC: COPL 14:01
PROVIDERS: PCP Registered Nurse Community Health; Referring Provider Registered Nurse Community Health; Visit Provider Registered Nurse Community Health
DX: G89.4 Chronic pain syndrome (principal); F41.1 Generalized anxiety disorder; M25.50 Pain in unspecified joint; M15.0 Primary generalized (osteo)arthritis; Z79.01 Long term (current) use of anticoagulants
CPT/HCPCS: 80307

== ENCOUNTER 2025-04-09 13:57 | Emergency (ER) | payer MEDICARE, MEDICAID, SELFPAY ==
--- NOTE | 2025-04-09 13:58 | XR_ITS ---
Examination: CT cervical spine without contrast 2-D sagittal reconstructions 2-D coronal reconstructions 3-D reconstructions. Exam date and time:April 09, 2025, 1444 hrs. Indications: Ground-level fall today with injury to the neck, neck pain. CTDI:vol (mGy) 13.9. DLP: (mGycm) 303. Technique: Multiple 2 mm axial sections of the cervical spine have been obtained. The coronal and sagittal reconstructions have been obtained. 3-D reconstructions have been obtained. Low dose protocols were performed. One or more of the following dose reduction techniques were used; automated exposure control, adjustment of the mA and/or KV according to patient size, use of iterative reconstruction technique. Findings: Axial sections demonstrate intact base of the skull. C1 exhibit satisfactory relationship to the odontoid. No acute cervical vertebral body fracture seen. Alignment posterior spinous processes satisfactory. Impression: No acute cervical fracture.
--- NOTE | 2025-04-09 13:58 | XR_ITS ---
Examination: CT brain head without contrast. 2-D sagittal coronal reconstructions Date and time of exam:April 09, 2025, 1444 hrs. Comparison: May 03, 2024. Indications: Ground-level fall today with injury to the back of the head, head pain. CTDI: vol (mGy):50.6. DLP: (mGycm):1074. Technique: Multiple CT axial sections of the brain have been obtained, 5 mm slice thickness. Contrast has not been administered. 2-D sagittal, coronal reconstructions have been obtained Low dose protocols were performed. One or more of the following dose reduction techniques were used; automated exposure control, adjustment of the mA and/or KV according to patient size, use of iterative reconstruction technique. Findings: No significant ventricular enlargement. Intra-axial or extra-axial hemorrhage density is not seen. No mass effect or midline shift Basal cisterns are not remarkable. Fourth ventricle is midline. Cranial vault intact. Impression: Negative for acute hemorrhage, mass effect or midline shift
[2025-04-09 14:02] VITALS: BP 105/70; PULSE 96; RESP 19; TEMP 36.6; O2SAT 96
--- NOTE | 2025-04-09 14:03 | PD.EDADULT ---
ED General RME/HPI General Chief complaint: Fall Stated complaint: FALL Time Seen by Provider: 04/09/25 13:58 Arrival date/time: 04/09/25 13:57 CC: Occiput and neck pain HPI status post fall approximately 20 minutes patient presents to the ER via EMS reports stable vital signs patient is awake alert oriented no focal deficits stating that her walker collapsed while stepping away from a restaurant falling backwards onto the back of her head. Patient is on Eliquis for A-fib. Patient denies chest pain shortness of breath loss of consciousness altered level of consciousness. Related Data Home Medications ?Medication ?Instructions ?Recorded ?Confirmed alprazolam 1 mg tablet (Xanax) 1 mg PO QID PRN Anxiety #0 tabs 04/23/15 05/03/24 exemestane 25 mg tablet 25 mg PO QDAY 07/13/18 05/03/24 rifaximin 550 mg tablet (Xifaxan) 550 mg PO BID 03/23/23 05/03/24 apixaban 5 mg tablet (Eliquis) 5 mg PO BID 06/27/23 05/03/24 simvastatin 40 mg tablet 40 mg PO HS for cholesterol 06/27/23 05/03/24 allopurinol 100 mg tablet 50 mg PO QDAY 04/27/24 05/03/24 magnesium oxide 420 mg tablet 420 mg PO BID 04/27/24 05/03/24 pantoprazole 40 mg tablet,delayed 40 mg PO QDAY 04/27/24 05/03/24 release pregabalin 75 mg capsule 75 mg PO QDAY 04/27/24 05/03/24 Previous Rx's ?Medication ?Instructions ?Recorded hydrocodone 10 mg-acetaminophen 1 tab PO Q6H PRN Pain #40 tabs 06/27/20 325 mg tablet levetiracetam 500 mg tablet 500 mg PO BID #60 tabs 05/05/24 (Keppra) levofloxacin 750 mg tablet 750 mg PO EVERYOTHERDAY #3 tabs 05/05/24 metoprolol succinate 50 mg capsule 50 mg PO QDAY #30 ea 05/05/24 sprinkle, ext. release 24 hr Allergies Allergy/AdvReac Type Severity Reaction Status Date / Time aspirin Allergy Mild liver Verified 04/09/25 14:23 problem codeine AdvReac Severe SEVERE Verified 04/09/25 14:23 NAUSEA AND VOMITING morphine AdvReac Severe Vomiting Verified 04/09/25 14:23 Review of Systems Review of Systems Narrative Review of Systems: GEN: No fever, no chills, no weight loss EYES: No discharge, no visual changes, no pain HEENT: No ear pain, no congestion, no sore throat PULM: No shortness of breath, no cough, no congestion CV: No chest pain, no dyspnea on exertion, no palpitations GI: No nausea, no vomiting, no diarrhea, no pain, no constipation : No frequency, no urgency, no dysuria MUSC/SKEL: No joint pain, no back pain SKIN: No rash PSYCH: No hallucinations, no depression HEME/LYMPH: No easy bleeding or bruising tendencies NEURO: No weakness, + headache Past Medical History Past Medical History NEUROLOGIC: Negative Neurological Disorders, Meningitis, Seizures or Migraine CARDIAC: Positive Cardiac Disorders, Cardiac Arrhythmia, Atrial Fibrillation, Hypercholesterolemia, Congestive Heart Failure and Hypertension RESPIRATORY: Positive Bronchitis; Negative Chronic Obstructive Pulmonary Disease (COPD), Asthma or Pneumonia GASTROINTESTINAL: Positive Gastrointestinal Disorders, Hepatitis, Cirrhosis, Gastroesophageal Reflux Disease and Obesity GENITOURINARY: Positive Genitourinary Disorders and Renal Disease; Negative Kidney Stones REPRODUCTIVE: Positive Breast Cancer and Previous Pregnancies; Negative Pelvic Inflammatory Disease MUSCULOSKELETAL: Positive Musculoskeletal Disorders, Arthritis and Gout ENDOCRINE: Negative Endocrine Disorders, Diabetes Mellitus Type 1 or Diabetes Mellitus Type 2 HEMATOLOGIC: Negative Blood Disorders or Sickle Cell Disease PSYCHO/SOCIAL: Positive Anxiety OTHER HISTORY: Positive Autoimmune Disease, Falls, Chemotherapy, Radiation Therapy, Chicken Pox, Measles, Cancer and Breast Cancer; Negative Hospitalization, Blood Transfusions, Blood Transfusion Reaction or Anesthesia Reactions Family History FAMILY HISTORY: Positive Family Cardiac Disorders, Family Cancer and Family Surgery; Negative Family Psychiatric Problems, Family Respiratory Disorders, Family Gastrointestinal Problems or Family Anesthesia Reaction Surgical History SURGICAL: Positive Tonsillectomy, Joint Replacement, Hysterectomy and Tubal Ligation Social History SMOKING STATUS: Former smoker SUBSTANCE USE: does not use ED Exam Narrative Physical exam: [General: Obese in mild discomfort but not in any acute distress Head normocephalic, small hematoma to the right occiput, no active bleeding no depressions or step-offs. HEENT: Eyes pupils are PERRLA EOMs are intact no entrapment mouth pink moist membranes uvula is midline swallow symmetrical phonation is normal no raccoon's eyes or Jacob sign. All of the subsystems of HEENT are within acceptable limits Neck is supple C6-7 tenderness with palpation swallow symmetrical phonation is normal. Note: At time of exam rigid c-collar was applied Chest equal chest rise nontender to palpation Respiratory: Clear to auscultation no wheezes crackles or rubs CV: Rate rhythm is regular no murmurs rubs or clicks Abdomen is distended secondary to body habitus soft nontender no masses positive bowel sounds all 4 quadrants Back: No CVA tenderness no spinous process tenderness from cervical spine thoracic and lumbar spine Skin: Intact no petechiae rash induration ulceration or crepitus Extremities: Moving all extremity against resistance cap refill less than 2 seconds neurosensory intact Neuro: Awake alert oriented x3 Glascow coma 15 no focal deficits] Course Course Course Narrative: Reassessment of this patient at 1641 the patient has had no deterioration in neurologic status throughout her visit emergency room at this time comfortable discharging the patient home. Quality Measures none Orders Category Date Time Status CT cervical spine wo con Stat Exams 04/09/25 13:[address] head/brain wo con Stat Exams 04/09/25 13:58 Completed CBC Stat Lab 04/09/25 14:35 Completed CMP [Comprehensive Metabolic Panel] Stat Lab 04/09/25 14:35 Completed PT [Prothrombin Time with INR] Stat Lab 04/09/25 15:38 Received PTT [Partial Thromboplastin Time] Stat Lab 04/09/25 15:38 Received Urinalysis, C/S if Indicated Stat Lab 04/09/25 14:03 Ordered Ketorolac Inj [Toradol Inj] Med 04/09/25 15:55 Discontinued 15 mg IVP X1 ONE Vital Signs Vital signs: Vital Signs Temperature 97.8 F 04/09/25 14:02 Pulse Rate 96 04/09/25 14:02 Respiratory Rate 19 04/09/25 14:02 Blood Pressure 105/70 04/09/25 14:02 Pulse Oximetry (%) 96 04/09/25 14:02 Oxygen Delivery Method Room Air 04/09/25 14:02 Discharge Plan Plan Patient Disposition: HOME (Self Care) Prescriptions/Referrals Prescriptions/Med Rec: No Action alprazolam [Xanax] 1 MG tablet 1 mg PO QID PRN (Reason: Anxiety) Qty: 0 Rx Instructions: no prn per pharmacy exemestane 25 mg Tablet 25 mg PO QDAY hydrocodone-acetaminophen 10-325 mg Tablet 1 tab PO Q6H MDD 6 PRN (Reason: Pain) Qty: 40 0RF Xifaxan 550 mg tablet 550 mg PO BID Patient Comments: TAKE ONE TABLET BY MOUTH TWICE DAILY simvastatin 40 mg tablet 40 mg PO HS Patient Comments: TAKE ONE TABLET BY MOUTH AT BEDTIME FOR CHOLESTEROL Eliquis 5 mg tablet 5 mg PO BID Patient Comments: TAKE ONE TABLET BY MOUTH TWICE DAILY FOR THE HEART magnesium oxide 420 mg Tablet 420 mg PO BID allopurinol 100 mg Tablet 50 mg PO QDAY pantoprazole 40 mg Tablet,Delayed Release (Dr/Ec) 40 mg PO QDAY pregabalin 75 mg Capsule 75 mg PO QDAY levetiracetam [Keppra] 500 mg tablet 500 mg PO BID Qty: 60 0RF metoprolol succinate 50 mg capsule,sprinkle,ER 24hr 50 mg PO QDAY Qty: 30 0RF levofloxacin 750 mg tablet 750 mg PO EVERYOTHERDAY Qty: 3 0RF Referrals: Tiago Alfred MD [Physician] - In 1 week No Primary/Family,Physician [Primary Care Provider] - In 1 week Problem List Clinical Impression: Fall, Contusion of scalp, Contusion of neck Patient/Caregiver Discharge Instructions Other Activity Instructions:: Rest, if there is abrupt onset of dizziness that is unrelenting or another fall return immediately to the emergency room for reevaluation. Education Materials: Fall Prevention Assessing Risk, ED Soft Tissue Contusion, ED Scalp Contusion Print Language: Mohawk Stand Alone Forms: [facility] Award Info., Patient Portal Info Letter MDM Clinical Information Provided by patient and EMS Medical Records Reviewed [facility] Meds/Rx Considered, not Ordered None Labs/Rad/Tests considered, not Ordered None Lab Interpretation Lab(s) interpretation(s): CMP shows no significant electrolyte imbalances or renal impairment other than a creatinine of 1.7 CBC shows no acute leukocytosis anemia or thrombocytopenia. Imaging Provider imaging interpretation(s): CT head and C-spine as interpreted by me read by radiology are negative for any acute finding Medication Administration(s) Medication Administration History Discontinued Medications Ketorolac Tromethamine (Ketorolac Inj 30 Mg/Ml Vial) 15 mg IVP X1 ONE Stop: 04/09/25 15:56 Last Admin: 04/09/25 16:04 Dose: 15 mg Documented By: HERON
[2025-04-09 14:15] VITALS: PULSE 96; RESP 16; O2SAT 98; BMI 33.9
[2025-04-09 14:47] LABS: Basophils # (Auto) 0.1 Thou/mm3 (0.0-0.2); Basophils % (Auto) 1 % (0-2.5); Eosinophils # (Auto) 0.2 Thou/mm3 (0.0-0.5); Eosinophils % (Auto) 2 % (0-10); Hematocrit 45.4 % (36.0-46.0); Hemoglobin 14.8 g/dL (12.0-16.0); Immature Granulocytes Auto 0.03 Thou/mm3 (0.00-0.00); Lymphocytes # (Auto) 1.8 Thou/mm3 (1.0-4.8); Lymphocytes % (Auto) 18 % (10-50); Mean Corpuscular HGB Conc 32.6 g/dl (31.0-37.0); Mean Corpuscular Hemoglobin 28.5 pg (25.0-35.0); Mean Corpuscular Volume 87 fL (80-100); Monocytes # (Auto) 0.7 Thou/mm3 (0.0-0.8); Monocytes % (Auto) 7 % (0-12); Neutrophils # (Auto) 6.8 Thou/mm3 (1.8-7.7); Neutrophils % (Auto) 71 % (37-80); Nucleated Red Blood Cell # 0.00 Thou/mm3 (0.00-0.00); Nucleated Red Blood Cell % 0 /100 WBC (0); Platelet Count 203 Thou/mm3 (140-440); RDW Standard Deviation 44.8 fL (36.4-46.3); Red Blood Count 5.20 Miln/mm3 (4.00-5.20); White Blood Count 9.5 Thou/mm3 (3.6-11.0)
[2025-04-09 15:16] LABS: Alanine Aminotransferase 17 U/L (10-49); Albumin, Serum 3.9 gm/dL (3.4-4.8); Albumin/Globulin Ratio 1.6 (1.2-2.2); Alkaline Phosphatase 122 U/L (46-116); Anion Gap 10 (7-16); Aspartate Amino Transferase 33 U/L (0-34); BUN/Creatinine Ratio 14 Ratio (12-20); Bilirubin,Total 0.9 mg/dL (0.3-1.2); Blood Urea Nitrogen 23 mg/dL (9-23); Calcium 10.2 mg/dL (8.3-10.6); Calcium (Corrected) 10.3 mg/dL (8.5-10.1); Carbon Dioxide 27.0 mMol/L (20.0-31.0); Chloride 104 mMol/L (98-107); Creatinine (Component) 1.7 mg/dL (0.6-1.3); Estimated Creatinine Clearance 33.6 mL/min (>60); Globulin 2.4 gm/dL (2.3-3.5); Glucose 113 mg/dL (74-106); Osmolality,Calculated 285 (275-295); Potassium 3.9 mMol/L (3.4-5.1); Sodium 141 mMol/L (136-145); Total Protein 6.3 gm/dL (5.7-8.2); eGFR 32 See Note
[2025-04-09] MEDS: KETOROLAC INJ 30 MG/ML VIAL 15 MG IVP (16:04)
[2025-04-09 16:16] VITALS: BP 117/88; PULSE 76; RESP 16; TEMP 36.6; O2SAT 97
[2025-04-09 16:45] LABS: INR 1.2 (0.9-1.3); Partial Thromboplastin Time 27.3 Seconds (22.0-36.0); Prothrombin Time 13.3 Seconds (9.0-12.2)
[2025-04-09 17:01] VITALS: BP 117/88; PULSE 68; RESP 16; TEMP 36.6; O2SAT 99
== END 2025-04-09 17:02 | disposition home or self-care (01) ==
PROVIDERS: Registered Nurse General Practice; Emergency Provider Family Medicine
DX: S00.03XA Contusion of scalp, initial encounter (principal); S10.93XA Contusion of unspecified part of neck, initial encounter; W18.30XA Fall on same level, unspecified, initial encounter; Y93.01 Activity, walking, marching and hiking; Y92.511 Restaurant or cafe as the place of occurrence of the external cause
CPT/HCPCS: 36415; 70450; 72125; 80053; 81001; 85025; 85610; 85730; 96374; 99284; J1885

== ENCOUNTER → 2025-05-23 | Outpatient (CLI) | payer MEDICARE, MEDICAID, SELFPAY ==
--- NOTE | 2025-05-23 12:00 | XR_ITS ---
Examination: Bone densitometry Date and time of exam: May 23, 2025, 1214 hours INDICATIONS: Hysterectomy age 25, right breast cancer diagnosis, personal history osteopenia Technique: Lumbar spine and hip total bone mineralization values of an calculated. Peak reference and age match control results have been displayed. Findings: Lumbar spine total bone mineralization is 0.958 gm/cm2. This is 0.8 standard deviations below peak reference. This is 1.5 standard deviations above age-matched controls. Hip total bone mineralization is 0.679 gm/cm2 This is 2.2 standard deviations below peak reference. This is 0.5 standard deviations below age-matched controls Impression: There is normal mineralization based on lumbar spine measurements. There is osteopenia based on hip measurements Lumbar mineralization is decreased 6.5% compared with May 22, 2023 Hip mineralization is decreased 14.6% compared with May 22, 2023
[2025-05-23 13:57] LABS: Basophils # (Auto) 0.1 Thou/mm3 (0.0-0.2); Basophils % (Auto) 1 % (0-2.5); Eosinophils # (Auto) 0.2 Thou/mm3 (0.0-0.5); Eosinophils % (Auto) 2 % (0-10); Hematocrit 46.4 % (36.0-46.0); Hemoglobin 15.1 g/dL (12.0-16.0); Immature Granulocytes Auto 0.03 Thou/mm3 (0.00-0.00); Lymphocytes # (Auto) 1.5 Thou/mm3 (1.0-4.8); Lymphocytes % (Auto) 19 % (10-50); Mean Corpuscular HGB Conc 32.5 g/dl (31.0-37.0); Mean Corpuscular Hemoglobin 28.5 pg (25.0-35.0); Mean Corpuscular Volume 88 fL (80-100); Monocytes # (Auto) 0.7 Thou/mm3 (0.0-0.8); Monocytes % (Auto) 9 % (0-12); Neutrophils # (Auto) 5.3 Thou/mm3 (1.8-7.7); Neutrophils % (Auto) 69 % (37-80); Nucleated Red Blood Cell # 0.00 Thou/mm3 (0.00-0.00); Nucleated Red Blood Cell % 0 /100 WBC (0); Platelet Count 207 Thou/mm3 (140-440); RDW Standard Deviation 47.8 fL (36.4-46.3); Red Blood Count 5.30 Miln/mm3 (4.00-5.20); White Blood Count 7.7 Thou/mm3 (3.6-11.0)
[2025-05-23 14:26] LABS: Alanine Aminotransferase 30 U/L (10-49); Albumin, Serum 3.7 gm/dL (3.4-4.8); Albumin/Globulin Ratio 1.5 (1.2-2.2); Alkaline Phosphatase 124 U/L (46-116); Anion Gap 10 (7-16); Aspartate Amino Transferase 52 U/L (0-34); BUN/Creatinine Ratio 9 Ratio (12-20); Bilirubin,Total 0.8 mg/dL (0.3-1.2); Blood Urea Nitrogen 12 mg/dL (9-23); Calcium 9.8 mg/dL (8.3-10.6); Calcium (Corrected) 10.0 mg/dL (8.5-10.1); Carbon Dioxide 30.6 mMol/L (20.0-31.0); Chloride 101 mMol/L (98-107); Creatinine (Component) 1.4 mg/dL (0.6-1.3); Globulin 2.4 gm/dL (2.3-3.5); Glucose 102 mg/dL (74-106); Osmolality,Calculated 282 (275-295); Potassium 4.2 mMol/L (3.4-5.1); Sodium 142 mMol/L (136-145); Total Protein 6.1 gm/dL (5.7-8.2); eGFR 40 See Note
[2025-05-23 14:39] LABS: CA 15-3 19.5 U/mL (<32.4)
== END | disposition home or self-care (01) ==
LOC: CDIM 11:43 → COPL 12:12 → SCTO 12:12
PROVIDERS: Referring Provider Internal Medicine Hematology & Oncology; Visit Provider Radiology Diagnostic Radiology
DX: M85.88 Other specified disorders of bone density and structure, other site (principal); C50.411 Malignant neoplasm of upper-outer quadrant of right female breast
CPT/HCPCS: 36415; 77080; 80053; 85025; 86300

== ENCOUNTER → 2025-06-14 | Outpatient (CLI) | payer MEDICARE, MEDICAID, SELFPAY ==
[2025-06-14 11:55] LABS: Collection Type, Urine Clean Catch
[2025-06-14 12:10] LABS: Basophils # (Auto) 0.1 Thou/mm3 (0.0-0.2); Basophils % (Auto) 1 % (0-2.5); Eosinophils # (Auto) 0.2 Thou/mm3 (0.0-0.5); Eosinophils % (Auto) 2 % (0-10); Hematocrit 47.3 % (36.0-46.0); Hemoglobin 14.9 g/dL (12.0-16.0); Immature Granulocytes Auto 0.03 Thou/mm3 (0.00-0.00); Lymphocytes # (Auto) 1.8 Thou/mm3 (1.0-4.8); Lymphocytes % (Auto) 19 % (10-50); Mean Corpuscular HGB Conc 31.5 g/dl (31.0-37.0); Mean Corpuscular Hemoglobin 28.0 pg (25.0-35.0); Mean Corpuscular Volume 89 fL (80-100); Monocytes # (Auto) 0.7 Thou/mm3 (0.0-0.8); Monocytes % (Auto) 7 % (0-12); Neutrophils # (Auto) 6.5 Thou/mm3 (1.8-7.7); Neutrophils % (Auto) 70 % (37-80); Nucleated Red Blood Cell # 0.00 Thou/mm3 (0.00-0.00); Nucleated Red Blood Cell % 0 /100 WBC (0); Platelet Count 245 Thou/mm3 (140-440); RDW Standard Deviation 50.4 fL (36.4-46.3); Red Blood Count 5.33 Miln/mm3 (4.00-5.20); White Blood Count 9.2 Thou/mm3 (3.6-11.0)
[2025-06-14 12:21] LABS: Parathyroid Hormone Intact 100.6 pg/ml (18.5-88.0)
[2025-06-14 12:24] LABS: Alanine Aminotransferase 21 U/L (10-49); Albumin, Serum 4.4 gm/dL (3.4-4.8); Albumin/Globulin Ratio 2.0 (1.2-2.2); Alkaline Phosphatase 111 U/L (46-116); Anion Gap 8 (7-16); Aspartate Amino Transferase 40 U/L (0-34); BUN/Creatinine Ratio 15 Ratio (12-20); Bilirubin,Total 0.7 mg/dL (0.3-1.2); Blood Urea Nitrogen 21 mg/dL (9-23); Calcium 10.0 mg/dL (8.3-10.6); Calcium (Corrected) 10.0 mg/dL (8.5-10.1); Carbon Dioxide 29.1 mMol/L (20.0-31.0); Chloride 105 mMol/L (98-107); Creatinine (Component) 1.4 mg/dL (0.6-1.3); Globulin 2.2 gm/dL (2.3-3.5); Glucose 99 mg/dL (74-106); Osmolality,Calculated 286 (275-295); Potassium 5.4 mMol/L (3.4-5.1); Sodium 142 mMol/L (136-145); Thyroid Stimulating Hormone 0.83 uIU/mL (0.55-4.78); Total Protein 6.6 gm/dL (5.7-8.2); eGFR 40 See Note
[2025-06-14 12:24] LABS: Creatinine MALB Rnd Ur > 245 mg/dL (30-125); Microalbumin Creat Ratio 11 mg/gCrea (<30); Microalbumin, Random Urine 29 mg/L (0-300)
[2025-06-14 12:25] LABS: Bacteria,Urine 3+; Bilirubin,Urine Negative (Negative); Blood,Urine 2+ (Negative); Color,Urine Yellow (Lt Yel-Yel); Culture Indicated,Urine Contaminated; Glucose, Urine Negative (Negative); Ketones,Urine Negative (Negative); Leukocyte Esterase,Urine Positive (Negative); Nitrite,Urine Negative (Negative); PH,Urine 6.0 (5.0-7.0); Protein,Urine 1+ (Neg - Trace); RBC,Urine 18 /hpf (0-3); Specific Gravity,Urine 1.026 (1.001-1.035); Squamous Epithelial Cell,Urine 15 /hpf (0-5); Urobilinogen,Urine 2.0 mg/dL (0.0-1.0); WBC,Urine 586 /hpf (0-5)
[2025-06-14 12:28] LABS: Clarity,Urine Cloudy (Clear/Hazy)
== END | disposition home or self-care (01) ==
LOC: COPL 10:56
PROVIDERS: PCP Registered Nurse Community Health; Referring Provider Internal Medicine; Visit Provider Internal Medicine
DX: N17.9 Acute kidney failure, unspecified (principal); I10 Essential (primary) hypertension; E78.5 Hyperlipidemia, unspecified
CPT/HCPCS: 36415; 80053; 81001; 82043; 82570; 83970; 84443; 85025